=== PATIENT | female | born 1940 | race Caucasian/White ===

== ENCOUNTER 2021-08-01 13:27 | Inpatient (IN) | payer MEDICARE ==
[~2021-08-01] VITALS: Ht 157.5 cm; Wt 80.3 kg
[~2021-08-01 13:27] MED LIST: ALDACTONE 25MG25 MG PO; ALENDRONATE SOD70 MG PO; ALPRAZOLAM0.5 MG PO; AMIODARONE HCL200 MG PO; ASPIRIN 325MG325 MG NG; ASPIRIN CHEWABL81 MG PO; AZITHROMYCIN250 MG PO; CALCITRATE200 MG PO; CARDIZEM CD120 MG PO; CENTRUM SILVER1 EAC4 PO; CVS FISH OIL 11 EAC1 PO; DIGOXIN125 MCG PO; DIGOXIN250 MCG/1 IVP; ELIQUIS2.5 MG PO; ENOXAPARIN40 MG/0.4 SC; FISH OIL 1,0001 EACH PO; FUROSEMIDE10 MG/1 M1 IVP; FUROSEMIDE40 MG PO; GLUCOPHAGE1000 MG PO; IPRAT-ALBUT 0.5-3 ML NEB; K-DUR TAB 20 M20 MEQ PO; LANTUS INS100 UTS/M1 SC; LASIX20 MG PO; LASIX40 MG PO; LEVEMIR100 UNIT/1 SQ; LOPRESSOR 25 MG25 MG PO; LOPRESSOR 50 MG50 MG PO; MEDROL4 MG PO; PLAVIX 75 MG TA75 MG PO; PRAVACHOL40 MG PO; PRINIVIL5 MG PO; THERAGRAN M TAB1 EA PO
[2021-08-01 15:17] LABS: RED BLOOD COUNT 2.64 M/UL (4.00-5.10); WHITE BLOOD COUNT 5.9 K/UL (4.5-11.0)
[2021-08-01 15:23] LABS: HEMOGLOBIN 4.5 gm/dl (12.3-15.3)
[2021-08-01 15:40] LABS: BUN/CREATININE RATIO 13 (0-10)
[2021-08-01] MEDS ORDERED: FUROSEMIDE40 MG PO (17:03)
[2021-08-01] MEDS ORDERED: LEVEMIR FL100 UNIT/1 INH (17:04)
[2021-08-01] MEDS ORDERED: LEVEMIR FL100 UNIT/1 INJ (18:13)
[2021-08-01] MEDS ORDERED: NEURONTIN 100100 MG PO (18:45)
[2021-08-01] MEDS ORDERED: PROTONIX40 MG PO (18:46)
[2021-08-01] MEDS ORDERED: SYNTHROID125 MCG PO (18:46)
[2021-08-01] MEDS ORDERED: LIPITOR80 MG PO (21:15)
[2021-08-01] MEDS ORDERED: FOSAMAX70 MG PO (21:20)
[2021-08-01 23:35] LABS: HEMOGLOBIN 6.3 gm/dl (12.3-15.3)
[2021-08-02 06:28] LABS: HEMOGLOBIN 7.9 gm/dl (12.3-15.3); WHITE BLOOD COUNT 7.3 K/UL (4.5-11.0)
[2021-08-02 06:29] LABS: RED BLOOD COUNT 3.77 M/UL (4.00-5.10)
[2021-08-02 15:42] LABS: HEMOGLOBIN 8.1 gm/dl (12.3-15.3)
[2021-08-03 07:09] LABS: HEMOGLOBIN 8.3 gm/dl (12.3-15.3); RED BLOOD COUNT 4.02 M/UL (4.00-5.10); WHITE BLOOD COUNT 8.4 K/UL (4.5-11.0)
[2021-08-04 06:41] LABS: HEMOGLOBIN 7.9 gm/dl (12.3-15.3); RED BLOOD COUNT 3.79 M/UL (4.00-5.10)
[2021-08-04 06:42] LABS: WHITE BLOOD COUNT 5.9 K/UL (4.5-11.0)
[2021-08-05 07:55] LABS: HEMOGLOBIN 7.6 gm/dl (12.3-15.3); RED BLOOD COUNT 3.62 M/UL (4.00-5.10); WHITE BLOOD COUNT 5.2 K/UL (4.5-11.0)
[2021-08-05 08:28] LABS: BUN/CREATININE RATIO 10 (0-10)
[2021-08-05 12:55] LABS: HEMOGLOBIN 8.1 gm/dl (12.3-15.3)
[2021-08-05] MEDS ORDERED: FERROUS GLUCON324 M1 PO (15:40)
[2021-08-05] MEDS ORDERED: CEFUROXIME500 MG PO (15:40)
== END 2021-08-05 16:27 | disposition home or self-care (01) | DRG 377 ==
LOC: ER1 13:27 → M/S 16:08 → CDU 16:08 → M/S 08-02 17:20
PROVIDERS: Emergency Medicine; Internal Medicine Gastroenterology; Physician Assistant; Physician Assistant Medical; ADMIT Internal Medicine
PROC: 30233N1 Transfusion of Nonautologous Red Blood Cells into Peripheral Vein, Percutaneous Approach (ICD-10-PCS; principal; 2021-08-01)
PROC: 3E02340 Introduction of Influenza Vaccine into Muscle, Percutaneous Approach (ICD-10-PCS; 2021-08-02)
PROC: 0DJD8ZZ Inspection of Lower Intestinal Tract, Via Natural or Artificial Opening Endoscopic (ICD-10-PCS; 2021-08-04)
PROC: 0DJ08ZZ Inspection of Upper Intestinal Tract, Via Natural or Artificial Opening Endoscopic (ICD-10-PCS; 2021-08-04 07:30)
DX: K29.51 Unspecified chronic gastritis with bleeding (principal); J18.9 Pneumonia, unspecified organism; I50.22 Chronic systolic (congestive) heart failure; J44.0 Chronic obstructive pulmonary disease with (acute) lower respiratory infection; Q43.8 Other specified congenital malformations of intestine; D50.9 Iron deficiency anemia, unspecified; K25.9 Gastric ulcer, unspecified as acute or chronic, without hemorrhage or perforation; Z20.822 Contact with and (suspected) exposure to COVID-19; I25.10 Atherosclerotic heart disease of native coronary artery without angina pectoris; I27.81 Cor pulmonale (chronic); M81.0 Age-related osteoporosis without current pathological fracture; E11.9 Type 2 diabetes mellitus without complications; E03.9 Hypothyroidism, unspecified; I48.91 Unspecified atrial fibrillation; F17.210 Nicotine dependence, cigarettes, uncomplicated; G47.33 Obstructive sleep apnea (adult) (pediatric); E87.6 Hypokalemia; I35.0 Nonrheumatic aortic (valve) stenosis; K43.9 Ventral hernia without obstruction or gangrene; Z95.4 Presence of other heart-valve replacement; Z98.890 Other specified postprocedural states; Z90.49 Acquired absence of other specified parts of digestive tract; Z98.49 Cataract extraction status, unspecified eye; Z82.49 Family history of ischemic heart disease and other diseases of the circulatory system; Z80.0 Family history of malignant neoplasm of digestive organs; Z79.899 Other long term (current) drug therapy; Z23 Encounter for immunization
CPT/HCPCS: 36415; 71045; 71046; 80048; 80053; 82272; 82550; 82553; 82607; 82728; 82746; 82962; 83540; 83735; 83874; 83880; 84484; 85014; 85018; 85025; 85027; 85610; 85730; 86850; 86900; 86901; 86920; 93005; 94640; 94760; 97110-GP-CQ; 97116-GP-CQ; 97162; 99285; C9113; G0378; J0696; J1940; J7040; P9016; U0002

== ENCOUNTER → 2021-08-11 | Outpatient (CLI) | payer MEDICARE ==
[~2021-08-11] MED LIST changes: +CEFUROXIME500 MG PO; +FERROUS GLUCON324 M1 PO; +FOSAMAX70 MG PO; +LEVEMIR FL100 UNIT/1 INH; +LEVEMIR FL100 UNIT/1 INJ; +LIPITOR80 MG PO; +NEURONTIN 100100 MG PO; +PROTONIX40 MG PO; +SYNTHROID125 MCG PO
[2021-08-11 10:15] LABS: HEMOGLOBIN 8.9 gm/dl (12.3-15.3); RED BLOOD COUNT 4.19 M/UL (4.00-5.10); WHITE BLOOD COUNT 6.3 K/UL (4.5-11.0)
== END ==
LOC: LAB 09:37
PROVIDERS: Internal Medicine
DX: D64.9 Anemia, unspecified (principal)
CPT/HCPCS: 36415; 85025

== ENCOUNTER → 2021-08-15 | Outpatient (CLI) | payer MEDICARE | LOC: KOH-I 08:11 | DX: K74.60 Unspecified cirrhosis of liver (principal); R16.1 Splenomegaly, not elsewhere classified; N28.9 Disorder of kidney and ureter, unspecified | CPT/HCPCS: 76700 ==

== ENCOUNTER → 2022-01-09 | Outpatient (CLI) | payer MEDICARE | LOC: CT 11-19 10:30 | DX: N28.9 Disorder of kidney and ureter, unspecified (principal) | CPT/HCPCS: 36415; 74170; 82565; 84520; Q9967 ==

== ENCOUNTER 2022-06-17 09:25 | Emergency (ER) | payer MEDICARE ==
[~2022-06-17 09:25] MED LIST changes: -LEVEMIR FL100 UNIT/1 INH; +LEVEMIR FL100 UNIT/1 SQ; -THERAGRAN M TAB1 EA PO
[2022-06-17 11:38] LABS: HEMOGLOBIN 10.5 gm/dl (12.3-15.3); RED BLOOD COUNT 4.44 M/UL (4.00-5.10); WHITE BLOOD COUNT 9.4 K/UL (4.5-11.0)
[2022-06-17] MEDS ORDERED: HYDROCODON-ACE1 EAC4 PO (16:54)
[2022-06-17] MEDS ORDERED: COLACE100 MG PO (16:54)
[2022-06-17] MEDS ORDERED: AUGMENTIN 500-1 EACH PO (16:57)
[2022-06-17] MEDS ORDERED: AMOX TR-K CLV1 EAC4 PO (17:05)
[2022-06-17] MEDS ORDERED: TRULICITY3 MG/0.5 M SQ (17:08)
[2022-06-17] MEDS ORDERED: FERROUS SULFAT325 M2 PO (17:28)
== END 2022-06-17 17:25 | disposition left against medical advice (07) ==
LOC: ER1 09:25 → CDU 15:41
PROVIDERS: Physician Assistant
DX: R10.31 Right lower quadrant pain (principal); R10.819 Abdominal tenderness, unspecified site; E11.9 Type 2 diabetes mellitus without complications; I11.0 Hypertensive heart disease with heart failure; I50.9 Heart failure, unspecified; I48.91 Unspecified atrial fibrillation; E78.5 Hyperlipidemia, unspecified; Z90.49 Acquired absence of other specified parts of digestive tract
CPT/HCPCS: 80053; 81001; 82150; 83690; 85025; 93005; 99284; Q9967